=== PATIENT | male | born 2000 | race African-American/Black ===

== ENCOUNTER 2020-11-21 23:01 | Emergency (ER) | payer SELFPAY ==
[~2020-11-21] VITALS: Ht 170.2 cm; Wt 67.6 kg
--- NOTE | 2020-11-21 23:05 | PHYS DOC ---
General Adult HPI: HPI: ".. I was having sex.. with a condom this morning... Or actually yesterday morning... I pulled out and took the condom off... Then I decided to go back in.... Without a condom....." everything seemed to go okay but about noon it felt like I had a abnormal feeling in my penis..." Patient is a 20 year old male who presents with above hx and complaints tingling feeling in his penis head after unprotected sex. Patient denies any previous history of STDs. Sexual partner has no vaginal symptoms. Patient has had only one sexual partner in his life. Patient has not noticed any dysuria on urination. Has not noticed any discharge. They used no sexual stimulants or lubricants during the sexual intercourse. No other exposures to his penis, unusual soaps or new hygiene products, patient is a circumcised male with testicles descended. There is no obvious meatus discharge. There is no obvious lesions to the penile head or penile shaft. There is no adenopathy in groin. Patient states the tingle feeling is 1 out of 10. Patient denies any history of travel. Patient denies any specific ill contacts. Patient denies any history immunosuppression. Patient denies any other health problems. Patient has had Covid vaccination Moderna- x2 Months ago. Has been exposed to family members who had COVID, uncle stepdaughter has from COVID. Review of Systems: Review of Systems: Constitutional: Denies fever or chills Eyes: Denies change in visual acuity HENT: Denies nasal congestion or sore throat Respiratory: Denies cough or shortness of breath Cardiovascular: Denies chest pain or edema GI: Denies abdominal pain, nausea, vomiting, bloody stools or diarrhea : Denies dysuria. Complains of " funny tingle in penis head" Musculoskeletal: Denies back pain or joint pain Integument: Denies rash Neurologic: Denies headache, focal weakness or sensory changes Endocrine: Denies polyuria or polydipsia Lymphatic: Denies swollen glands Psychiatric: Denies depression or anxiety Family History: Family History: Noncontributory to presentation Current Medications: Current Meds: See nursing for home meds Allergies: Allergies: No known drug allergies . Does have a peanut allergy. Physical Exam: PE: Constitutional: Well developed, well nourished, no acute distress, non-toxic appearance. [] HENT: Normocephalic, atraumatic, bilateral external ears normal, oropharynx moist, no oral exudates, nose normal. [] Eyes: PERRLA, EOMI, conjunctiva normal, no discharge. [] Neck: Normal range of motion, no tenderness, supple, no stridor. [] Cardiovascular:Heart rate regular rhythm, no murmur [] Lungs & Thorax: Bilateral breath sounds clear to auscultation [] Abdomen: Bowel sounds normal, soft, no tenderness, no masses, no pulsatile masses. Circumcised male. No penile discharge. Testicles descended. No groin adenopathy. No obvious lesion of penile head. Skin: Warm, dry, no erythema, no rash. [] Back: No tenderness, no CVA tenderness. [] Extremities: No tenderness, no cyanosis, no clubbing, ROM intact, no edema. [] Neurologic: Alert and oriented X 3, normal motor function, normal sensory function, no focal deficits noted. [] Psychologic: Affect anxious, judgement normal, mood normal. [] EKG: EKG: [] Radiology/Procedures: Radiology/Procedures: [] Heart Score: C/O Chest Pain: N/A Risk Factors: Risk Factors: DM, Current or recent (<one month) smoker, HTN, HLP, family history of CAD, obesity. Risk Scores: Score 0 - 3: 2.5% MACE over next 6 weeks - Discharge Home Score 4 - 6: 20.3% MACE over next 6 weeks - Admit for Clinical Observation Score 7 - 10: 72.7% MACE over next 6 weeks - Early Invasive Strategies Course & Med Decision Making: Course & Med Decision Making Pertinent Labs and Imaging studies reviewed. (See chart for details) Patient follow-up urine cultures. Patient monitor any signs of herpes or penile discharge. Consider follow-up at the health department. Recommend patient practice safe sex that means a condom with all sexual intercourse. Patient return if any concerns. Patient follow-up primary care. Impression: 1. Change in penile sensation 2. Patient concern for possible STD [] Dragon Disclaimer: Dragon Disclaimer: This electronic medical record was generated, in whole or in part, using a voice recognition dictation system. Departure Departure: Referrals: PCPJAMESON (PCP) Dragon Disclaimer This chart was dictated in whole or in part using Voice Recognition software in a busy, high-work load, and often noisy Emergency Department environment. It may contain unintended and wholly unrecognized errors or omissions. Dragon Disclaimer This chart was dictated in whole or in part using Voice Recognition software in a busy, high-work load, and often noisy Emergency Department environment. It may contain unintended and wholly unrecognized errors or omissions. ANGELA OROURKE MD Nov 21, 2020 23:04
[2020-11-22 00:02] LABS: BACTERIA,URINE 0 /HPF (0-FEW); BILIRUBIN,URINE NEG (NEG); CLARITY,URINE CLEAR; COLOR,URINE YELLOW; GLUCOSE,URINE NEG (NEG); NITRITE,URINE NEG (NEG); RBC,URINE 0 /HPF (0-2); SQUAMOUS EPITHELIAL CELL,UR OCC /LPF; UROBILINOGEN,URINE 0.2 mg/dL (0.2 mg/dL); WBC,URINE OCC /HPF (0-4)
[2020-11-22 00:07] LABS: BARBITURATES NEG (NEG); BENZODIAZEPINES NEG (NEG); CANNABINOIDS NEG (NEG); COCAINE NEG (NEG); METHADONE NEG (NEG); OPIATES NEG (NEG); PHENCYCLIDINE NEG (NEG)
[2020-11-22 00:09] LABS: AMPHETAMINE/METHAMPHETAMINE NEG (NEG)
[2020-11-22 01:17] VITALS: BP 136/64
== END 2020-11-22 01:19 | disposition home or self-care (01) ==
LOC: ER 23:01
DX: N48.89 Other specified disorders of penis (principal)
CPT/HCPCS: 36415; 80307; 81001; 87491; 87591; 99283

== ENCOUNTER 2020-11-30 00:18 | Emergency (ER) | payer MEDICAID ==
[~2020-11-30] VITALS: Ht 177.8 cm; Wt 84.9 kg
--- NOTE | 2020-11-30 00:58 | RAD ---
Left ankle x-rays 3 views HISTORY: Left ankle pain and injury. FINDINGS: No fracture. No dislocation. No talus osteochondral lesion. The soft tissues are unremarkab le. IMPRESSION: No acute osseous injury. Electronically signed by: Gallo Rosado MD (11/30/2020 12:56 AM) [facility]
[2020-11-30 01:00] VITALS: BP 98/68
--- NOTE | 2020-11-30 01:22 | PHYS DOC ---
Past History Past Surgical History: No Surgical History Alcohol Use: None Adult General Chief Complaint Chief Complaint: ANKLE PROBLEM HPI HPI Patient is a 20 year old male who presents with left ankle pain after having suffered an injury 2 weeks ago while kickboxing. Since that time he has had pain on and off particularly onto the medial aspect. He is able to fully bear weight with discomfort that is random. He denies any pain to the foot, feldman, knee or hip. He has no other injuries or complaints. Review of Systems Review of Systems Constitutional: Denies fever or chills [] Eyes: Denies change in visual acuity, redness, or eye pain [] HENT: Denies nasal congestion or sore throat [] Respiratory: Denies cough or shortness of breath [] Cardiovascular: No additional information not addressed in HPI [] GI: Denies abdominal pain, nausea, vomiting, bloody stools or diarrhea [] Musculoskeletal: Denies back pain or joint pain [] Integument: Denies rash or skin lesions [] Neurologic: Denies headache, focal weakness or sensory changes [] All other systems were reviewed and found to be within normal limits, except as documented in this note. Family History Family History Unremarkable Current Medications Current Medications None Allergies Allergies Allergies Coded Allergies Type Severity Reaction Last Updated Verified peanut Allergy Unknown 11/21/20 Yes Physical Exam Physical Exam Constitutional:No acute distress, non-toxic appearance. [] HENT: Normocephalic, atraumatic, Eyes: PERRLA, EOMI, conjunctiva normal, no discharge. [] Neck: Normal range of motion, no tenderness, supple, no stridor. [] Cardiovascular:Heart rate regular rhythm, no murmur [] Lungs & Thorax: Bilateral breath sounds clear to auscultation [] Abdomen: Bowel sounds normal, soft, no tenderness, no masses, no pulsatile masses. [] Skin: Warm, dry, no erythema, no rash. [] Back: No tenderness, no CVA tenderness. [] Extremities: Left ankle has no significant swelling but very mild tenderness on deep palpation to the medial malleolus area. There is no tenderness laterally. Dorsalis pedis pulses normal. The movement of ankle is fairly normal with slight discomfort medially upon full extension. Rest of the extremity examination is normal. Neurologic: Alert and oriented X 3, normal motor function, normal sensory function, no focal deficits noted. [] Psychologic: Affect normal, judgement normal, mood normal. [] Current Patient Data Vital Signs Vital Signs Date Time Temp Pulse Resp B/P (MAP) Pulse Ox O2 Delivery O2 Flow Rate FiO2 11/30/20 01:00 98.4 54 20 98/68 99 Room Air EKG EKG [] Radiology/Procedures Radiology/Procedures Ankle x-ray as interpreted by radiology shows no evidence of acute injury. Impressions: No acute abnormalities Heart Score C/O Chest Pain: No Risk Factors: Risk Factors: DM, Current or recent (<one month) smoker, HTN, HLP, family history of CAD, obesity. Risk Scores: Risk Factors: DM, Current or recent (<one month) smoker, HTN, HLP, family hi story of CAD, obesity. Course & Med Decision Making Course & Med Decision Making Patient presented with isolated left ankle injury with continued tenderness after 2 weeks. Radiological study showed no acute bony injury. I have advised him to rest on it and if beyond 1 to 2-week he still has pain, he should see orthopedic surgeon for potential ligamentous injury. He does not require any splint as he is able to ambulate. He will use [id number] Motrin as needed for pain management. Dragon Disclaimer Dragon Disclaimer This electronic medical record was generated, in whole or in part, using a voice recognition dictation system. Departure Departure: Impression: Primary Impression: Ankle sprain Disposition: HOME / SELF CARE / HOMELESS Condition: STABLE Referrals: PCP,NO (PCP) If you are not completely better in 2 to 4 weeks, he should see orthopedic surgeon for further follow-up. Patient Instructions: Ankle Sprain HARIS LOPEZ MD Nov 30, 2020 01:22
== END 2020-11-30 01:56 | disposition home or self-care (01) ==
LOC: ER 00:18
DX: S93.402A Sprain of unspecified ligament of left ankle, initial encounter (principal); Z91.010 Allergy to peanuts; X50.9XXA Other and unspecified overexertion or strenuous movements or postures, initial encounter; Y93.89 Activity, other specified; Y92.89 Other specified places as the place of occurrence of the external cause; Y99.8 Other external cause status
CPT/HCPCS: 73610; 99283

== ENCOUNTER 2021-04-10 16:44 | Emergency (ER) | payer MEDICAID ==
[~2021-04-10] VITALS: Ht 170.2 cm; Wt 66.8 kg
[2021-04-10] MEDS ORDERED: IBUPROFEN 600 MG TABLET. PO ONE (17:15)
--- NOTE | 2021-04-10 17:20 | PHYS DOC ---
Past History Past Surgical History: No Surgical History (MIESHA PERKINS APRN) Alcohol Use: None (MIESHA PERKINS APRN) Adult General HPI HPI Patient is a 21-year-old male who presents to the emergency department complaining of right elbow pain, patient reports prior to arrival to the ER today he was wrestling another male and they landed on his right elbow. Patient denies feeling it pop, however does report pain with movement of the elbow. Patient denies taking pain medications or tried nonpharmacological pain relief therapies prior to arrival to the ER. Patient denies a surgical history, states he takes no medications at home, denies other physical complaints or physical concerns. (MIESHA PERKINS APRN) Review of Systems Review of Systems 14 body systems of review of systems have been reviewed. See HPI for pertinent positives and negative responses, otherwise all other systems are negative, nonpertinent or noncontributory. Constitutional: Negative except as outlined in HPI above. Skin: Negative except as outlined in HPI above. Eyes: Negative except as outlined in HPI above. HENT: Negative except as outlined in HPI above. Respiratory: Negative except as outlined in HPI above. Cardiovascular: Negative except as outlined in HPI above. GI: Negative except as outlined in HPI above. : Negative except as outlined in HPI above. Musculoskeletal: Negative except as outlined in HPI above. Integument: Negative except as outlined in HPI above. Neurologic: Negative except as outlined in HPI above. Endocrine: Negative except as outlined in HPI above. Lymphatic: Negative except as outlined in HPI above. Psychiatric: Negative except as outlined in HPI above. (MIESHA PERKINS APRN) Allergies Allergies Allergies Coded Allergies Type Severity Reaction Last Updated Verified peanut Allergy Unknown 11/21/20 Yes (MIESHA PERKINS APRN) Physical Exam Physical Exam Constitutional: Well developed, well nourished, no acute distress, non-toxic appearance. 21-year-old male in no apparent distress. HENT: Normocephalic, atraumatic. Eyes: Conjunctiva normal, no discharge. Neck: Normal range of motion, no stridor. Cardiovascular: No cyanosis appreciated, distal cap refill less than 2 seconds. Lungs & Thorax: Patient is in no respiratory distress, no audible adventitious lung sounds appreciated. Abdomen: Nontender, no abnormalities noted. Skin: Warm, dry, no erythema, no rash. Back: No tenderness, no deformities. Extremities: No tenderness, no cyanosis, no clubbing, ROM intact, no edema. Except for right upper extremity, full passive range of motion of the elbow join t to include flexion, extension, supination pronation, pain elicited with range of motion exam, no crepitus, no deformities appreciated, no swelling, no contusion appreciated, distal cap refill less than 2 seconds, 2+ radial pulses equal bilateral upper extremities. Neurologic: Alert and oriented X 3, normal motor function, normal sensory function, no focal deficits noted. Psychologic: Affect normal, judgement normal, mood normal. (MIESHA PERKINS APRN) EKG EKG [] (MIESHA PERKINS APRN) Radiology/Procedures Radiology/Procedures SEX: M EXAM STATUS: REG ER ORD. PHYSICIAN: MIESHA PERKINS APRN REASON: PAIN ESPECIALLY AROUND BACK OF ELBOW AFTER INJURY TODAY PROCEDURE: ELBOW RIGHT 3V XR ELBOW COMPLETE_RIGHT 3+ VIEWS History: Pain around back of elbow after injury. Comparison: None. Technique: 3 views of the right elbow. Findings: Osseous mineralization is normal. No acute fracture or dislocaton. No effusion. No significant degenerative changes. Soft tissues are unremarkable. Impression: 1. Unremarkable right elbow. Electronically signed by: Benigno Hansen MD (04/10/2021 5:27 PM) [facility] DICTATED AND SIGNED BY: BENIGNO HANSEN MD DATE: 04/10/211725 CC: MIESHA PERKINS APRN; PCP,NO ~MTH0 0 (MIESHA PERKINS APRN) Heart Score C/O Chest Pain: No Risk Factors: Risk Factors: DM, Current or recent (<one month) smoker, HTN, HLP, family history of CAD, obesity. Risk Scores: Risk Factors: DM, Current or recent (<one month) smoker, HTN, HLP, family history of CAD, obesity. (MIESHA PERKINS APRN) Course & Med Decision Making Course & Med Decision Making Pertinent Labs and Imaging studies reviewed. (See chart for details) 21-year-old male, vital signs reviewed, presents emerged from concerning right elbow pain after wrestling with somebody. Physical examination concerning for osseous elbow injury versus soft tissue injury of the right elbow. Will order x-ray, ice pack, ibuprofen for pain. X-ray imaging unremarkable, discussed findings with patient, will place Jesús wrap and sling for comfort, discussed RICE therapy, follow-up with primary care soon, return ER precautions or concerns. Patient gave verbal understanding of and is amenable to ED discharge planning. Discussed with the patient all findings and diagnostic testing as well as the need to follow-up with their primary care provider for further evaluation and treatment or return to the ED if any new or worsening symptoms. Strict return precautions were also discussed at length, the patient voiced understanding and agreement with the discharge planning. The patient was nontoxic in appearance, in no apparent distress, and hemodynamically stable at the time of disposition. (MISEHA PERKINS APRN) Course & Med Decision Making I was the Attending physician on the above date of service of this patient. This patient was evaluated, examined, treated, and dispositioned from the emergency department by the mid-level practitioner. Although I was working at the time , no assistance was requested. Electronically signed, Louie Feliz DO (LOUIE FELIZ DO) Dragon Disclaimer Dragon Disclaimer This electronic medical record was generated, in whole or in part, using a voice recognition dictation system. (MIESHA PERKINS APRN) Departure Departure: Impression: Primary Impression: Strain of right elbow Disposition: 01 HOME / SELF CARE / HOMELESS Condition: GOOD Referrals: PCP,NO (PCP) Patient Instructions: Elastic Bandage and RICE, Elbow Injury Additional Instructions: You were seen today in the emergency department after straining your right elbow while wrestling today. An x-ray was performed did not show any injury of the bones. I suspect that this is a strain of the elbow joint, you were treated with ice packs, ibuprofen for pain. After the x-ray was read negative a Jesús wrap was applied for comfort, and sling to aid in discomfort. Please practice RICE therapy this is an acronym for rest, ice, compression, elevation. Ice packs 30 minutes on and 30 minutes off while awake for the next 48 to 72 hours. I will prescribe 600 mg ibuprofen for inflammation of the elbow joint. Please follow-up with your primary care physician for ongoing aches and pains as this may require an MRI if pain is not resolved within a week or so. You may c onsider using the [facility] for outpatient care located at [address] [place] [address]. [address] [place] [address], their telephone number is area code [phone]. Please return to the emergency department for worsening symptoms or other concerns. Thank you for visiting our Emergency Department. It was a pleasure taking care of you today in the emergency department and we appreciate you trusting us with your care. If any additional problems come up don't hesitate to return to visit us. Please follow up with your primary care provider so they can plan additional care if needed and know about the problem that you had. If symptoms worsen come back to the Emergency Department. Any concerning symptoms that start such as chest pain, shortness of air, weakness or numbness on one side of the body, running high fevers or any other concerning symptoms return to the ER. EMERGENCY DEPARTMENT GENERAL DISCHARGE INSTRUCTIONS Thank you for coming to [facility] (ED) today and trusting us with you care. We trust that you had a positivie experience in our Emergency Department. If you wish to speak to the department management, you may call the director at [phone]. YOUR FOLLOW UP INSTRUCTIONS ARE FOLLOWS: 1. Do you have a private Doctor? If you do not have a private doctor, please ask for a resource list of physicians or clinics that may be able to assist you with follow up care. 2. The Emergency Physician has interpreted your x-rays. The X-Ray specialist will also review them. If there is a change in the findings, you will be notified in 48 hours when at all possible. 3. A lab test or culture has been done, your results will be reviewed and you will be notified if you need a change in treatment. ADDITIONAL INSTRUCTIONS AND INFORMATION: 1. Your care today has been supervised by a physician who is specially trained in emergency care. Many problems require more than one evaluation for a complete diagnosis and treatment. We recommend that you schedule your follow up appointment as recommended to ensure complete treatment of you illness or injury. If you are unable to obtain follow up care and continue to have a problem, or if your condition worsens, we recommend that you return to the ED. 2. We are not able to safely determine your condition over the phone nor are we able to give sound medical advice over the phone. For these safety reasons, if you call for medical advice we will ask you to come to the ED for further evaluation. 3. If you have any questions regarding these discharge instructions please call the ED at [phone]. SAFETY INFORMATION: In the interest of safety, wellness, and injury prevention; we encourage you to wear your sealbelt, if you smoke; quite smoking, and we encourage family to use a protective helmet for bicycling and other sporting events that present an increased risk for head injury. IF YOUR SYMPTOMS WORSEN OR NEW SYMPTOMS DEVELOP, OR YOU HAVE CONCERNS ABOUT YOUR CONDITION; OR IF YOUR CONDITION WORSENS WHILE YOU ARE WAITING FOR YOUR FOLLOW UP APPOINTMENT; EITHER CONTACT YOUR PRIMARY CARE DOCTOR, THE PHYSICIAN WHOSE NAME AND NUMBER YOU WERE GIVEN, OR RETURN TO THE ED IMMEDIATELY. Scripts Ibuprofen (IBUPROFEN) 600 Mg Tablet 600 MG PO PRN Q4-6HRS PRN for PAIN, #30 TAB 0 Refills Prov: MIESHA PERKINS APRN 04/10/21 Problem Qualifiers Primary Impression: Strain of right elbow Encounter type: initial encounter Qualified Codes: S46.911A - Strain of unspecified muscle, fascia and tendon at shoulder and upper arm level, right arm, initial encounter MIESHA PERKINS APRN Apr 10, 2021 17:20 LOUIE FELIZ DO Apr 13, 2021 07:03
--- NOTE | 2021-04-10 17:30 | RAD ---
XR ELBOW COMPLETE_RIGHT 3+ VIEWS History: Pain around back of elbow after injury. Comparison: None. Technique: 3 views of the right elbow. Findings: Osseous mineralization is normal. No acute fracture or dislocaton. No effusion. No significant degene rative changes. Soft tissues are unremarkable. Impression: 1. Unremarkable right elbow. Electronically signed by: Benigno Mcclendon MD (04/10/2021 5:27 PM) [facility]
[2021-04-10 17:45] VITALS: BP 115/48
[2021-04-10] MEDS ORDERED: IBUP600T16 PO (17:52)
== END 2021-04-10 18:13 | disposition home or self-care (01) ==
LOC: ER 16:44
DX: S46.911A Strain of unspecified muscle, fascia and tendon at shoulder and upper arm level, right arm, initial encounter (principal); Z91.010 Allergy to peanuts; W18.39XA Other fall on same level, initial encounter; Y93.72 Activity, wrestling; Y92.89 Other specified places as the place of occurrence of the external cause; Y99.8 Other external cause status
CPT/HCPCS: 73080; 99283

== ENCOUNTER 2021-06-08 19:35 | Emergency (ER) | payer MEDICAID ==
[~2021-06-08] VITALS: Ht 170.2 cm; Wt 65.0 kg
[~2021-06-08 19:35] MED LIST: IBUP600T16 PO
[2021-06-08] MEDS ORDERED: IBUPROFEN 600 MG TABLET. PO ONE (20:15)
[2021-06-08] MEDS ORDERED: ACETAMINOPHEN 500 MG TABLET PO ONE (20:15)
--- NOTE | 2021-06-08 22:10 | PHYS DOC ---
Past History Past Medical History: No Pertinent History (JILLIAN ZHU APRN) Past Surgical History: No Surgical History (JILLIAN ZHU APRN) Alcohol Use: None (JILLIAN ZHU APRN) General Adult EDM: Chief Complaint: FEVER HPI: HPI: Patient is a 21-year-old male that presents today with a 2-day complaint of cough and fever. Patient states that over the last 2 days he has had headache, cough, and low-grade fever. Patient states he took Tylenol yesterday but has not taken anything today for his headache or fever. Patient states he does not smoke and has no past medical history. (JILLIAN ZHU APRN) Review of Systems: Review of Systems: Constitutional: Fever and chills Eyes: Denies change in visual acuity HENT: Denies nasal congestion or sore throat Respiratory: Cough Cardiovascular: Denies chest pain or edema GI: Denies abdominal pain, nausea, vomiting, bloody stools or diarrhea : Denies dysuria Musculoskeletal: Denies back pain or joint pain Integument: Denies rash Neurologic: Denies headache, focal weakness or sensory changes Endocrine: Denies polyuria or polydipsia Lymphatic: Denies swollen glands Psychiatric: Denies depression or anxiety (JILLIAN ZHU APRN) Current Medications: Current Meds: Current Medications Medications (Trade) Dose Ordered Sig/Rj Start Time Stop Time Status Last Admin Dose Admin Acetaminophen (Tylenol) 1,000 mg 1X ONCE 06/08/21 20:15 06/08/21 20:16 DC 06/08/21 20:08 1,000 MG Ibuprofen (Motrin) 600 mg 1X ONCE 06/08/21 20:15 06/08/21 20:16 DC 06/08/21 20:08 600 MG (JILLIAN ZHU APRN) Allergies: Allergies: Allergies Coded Allergies Type Severity Reaction Last Updated Verified peanut Allergy Unknown 11/21/20 Yes (JILLIAN ZHU APRN) Physical Exam: PE: Constitutional: Well developed, well nourished, no acute distress, non-toxic appearance. [] HENT: Normocephalic, atraumatic, bilateral external ears normal, oropharynx moist, no oral exudates, nose normal. [] Eyes: PERRLA, EOMI, conjunctiva normal, no discharge. [] Neck: Normal range of motion, no tenderness, supple, no stridor. [] Cardiovascular:Heart rate regular rhythm, no murmur [] Lungs & Thorax: Bilateral breath sounds clear to auscultation [] Abdomen: Bowel sounds normal, soft, no tenderness, no masses, no pulsatile masses. [] Skin: Warm, dry, no erythema, no rash. [] Back: No tenderness, no CVA tenderness. [] Extremities: No tenderness, no cyanosis, no clubbing, ROM intact, no edema. [] Neurologic: Alert and oriented X 3, normal motor function, normal sensory function, no focal deficits noted. [] Psychologic: Affect normal, judgement normal, mood normal. [] (JILLIAN ZHU APRN) Current Patient Data: Labs: Laboratory Tests Test 06/08/21 21:50 Influenza Type A (Rapid) Positive Influenza Type B (Rapid) Negative SARS-CoV-2 Antigen (Rapid) Negative Current Medications Medications (Trade) Dose Ordered Sig/Rj Route PRN Reason Start Time Stop Time Status Last Admin Dose Admin Ibuprofen (Motrin) 600 mg 1X ONCE PO 06/08/21 20:15 06/08/21 20:16 DC 06/08/21 20:08 Acetaminophen (Tylenol) 1,000 mg 1X ONCE PO 06/08/21 20:15 06/08/21 20:16 DC 06/08/21 20:08 Vital Signs: Vital Signs Date Time Temp Pulse Resp B/P (MAP) Pulse Ox O2 Delivery O2 Flow Rate FiO2 06/08/21 22:35 71 20 139/68 (91) 97 Room Air 06/08/21 19:58 100.6 98 18 122/81 (95) 98 Room Air Vital Signs Date Time Temp Pulse Resp B/P (MAP) Pulse Ox O2 Delivery O2 Flow Rate FiO2 06/08/21 19:58 100.6 98 18 122/81 (95) 98 Room Air (JILLIAN ZHU APRN) EKG: EKG: [] (JILLIAN ZHU APRN) Radiology/Procedures: Radiology/Procedures: Chest x-ray was reviewed by myself and Dr. Concepcion, no acute findings were seen. [] (JILLIAN ZHU APRN) Heart Score: C/O Chest Pain: N/A Risk Factors: Risk Factors: DM, Current or recent (<one month) smoker, HTN, HLP, family history of CAD, obesity. Risk Scores: Score 0 - 3: 2.5% MACE over next 6 weeks - Discharge Home Score 4 - 6: 20.3% MACE over next 6 weeks - Admit for Clinical Observation Score 7 - 10: 72.7% MACE over next 6 weeks - Early Invasive Strategies (JILLIAN ZHU APRN) Course & Med Decision Making: Course & Med Decision Making Pertinent Labs and Imaging studies reviewed. (See chart for details) Reassessment of patient shows sitting in the hallway with no increased work of breathing, influenza was positive patient was instructed to stay well-hydrated take Tylenol and/or ibuprofen as needed for pain and to follow-up with his primary care physician as needed. (JILLIAN ZHU APRN) Course & Med Decision Making Did not see or evaluate patient. 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 Generally agree with BOLTING MACHINE OPERATOR's work-up and disposition per note. (NAVID CONCEPCION MD) Dragon Disclaimer: Dragon Disclaimer: This electronic medical record was generated, in whole or in part, using a voice recognition dictation system. (JILLIAN ZHU APRN) Departure Departure: Impression: Primary Impression: Influenza A Disposition: HOME / SELF CARE / HOMELESS Condition: STABLE Referrals: PCP,NO (PCP) Patient Instructions: Influenza A (H1N1) Additional Instructions: Tylenol and/or ibuprofen as needed for pain Increase by mouth fluids stay well-hydrated Use [id number] nasal decongestants and cough suppressants as needed to treat symptoms Follow-up with your primary care physician as needed JILLIAN ZHU APRN Jun 08, 2021 22:10 NAVID CONCEPCION MD Jun 08, 2021 23:12
[2021-06-08 22:25] LABS: INFLUENZA B PATIENT NEGATIVE (NEGATIVE)
[2021-06-08 22:27] LABS: INFLUENZA A PATIENT POSITIVE (NEGATIVE)
[2021-06-08 22:35] VITALS: BP 139/68
--- NOTE | 2021-06-08 23:07 | RAD ---
EXAM: CHEST ONE VIEW. HISTORY: Cough. COMPARISON: None. FINDINGS: A frontal view of the chest is obtained. There are no confluent infiltrates. There is no pneumothorax or pleural effusion. The heart is not en larged. IMPRESSION: 1. No confluent infiltrates. Electronically signed by: Milly Bond MD (06/08/2021 11:05 PM) [id number]
== END 2021-06-08 22:35 | disposition home or self-care (01) ==
LOC: ER 19:35
DX: J10.1 Influenza due to other identified influenza virus with other respiratory manifestations (principal); Z20.822 Contact with and (suspected) exposure to COVID-19; Z91.010 Allergy to peanuts
CPT/HCPCS: 71045; 87428; 99284

== ENCOUNTER 2021-07-14 22:23 | Emergency (ER) | payer MEDICAID ==
[~2021-07-14] VITALS: Ht 170.2 cm; Wt 65.0 kg
[2021-07-14] MEDS ORDERED: ONDANSETRON ODT 4 MG TAB.RAPDIS ONE (22:33)
[2021-07-14] MEDS ORDERED: ONDANSETRON ODT 4 MG TAB.RAPDIS PO ONE (22:45)
[2021-07-14] MEDS ORDERED: ONDANSETRON PF 4 MG/2 ML VIAL. IVP ONE (23:30)
[2021-07-14] MEDS ORDERED: IV NORMAL SALINE 1,000ML 1,000 ML IV ONE (23:30)
--- NOTE | 2021-07-14 23:38 | PHYS DOC ---
Past History Past Medical History: No Pertinent History Past Surgical History: No Surgical History Alcohol Use: None General Adult EDM: Chief Complaint: NAUSEA/VOMITING/DIARRHEA HPI: HPI: 21-year-old male presents with 4-day history of vomiting and diarrhea. Patient has vomiting couple times a day. He has had several episodes of diarrhea per day. He states it is very watery. He has some generalized abdominal pain. He is having trouble keeping down liquids or solids so he came in for evaluation. He denies fever chills. Unknown sick contacts. Review of Systems: Review of Systems: Constitutional: Denies fever or chills Eyes: Denies change in visual acuity HENT: Denies nasal congestion or sore throat Respiratory: Denies cough or shortness of breath Cardiovascular: Denies chest pain or edema GI: Generalized abdominal pain, nausea, vomiting, diarrhea : Denies dysuria Musculoskeletal: Denies back pain or joint pain Integument: Denies rash Neurologic: Denies headache, focal weakness or sensory changes Endocrine: Denies polyuria or polydipsia Lymphatic: Denies swollen glands Psychiatric: Denies depression or anxiety Current Medications: Current Meds: Current Medications Medications (Trade) Dose Ordered Sig/Rj Start Time Stop Time Status Last Admin Dose Admin Loperamide HCl (Imodium) 4 mg 1X ONCE 07/14/21 23:45 07/14/21 23:46 UNV Ondansetron HCl (Zofran Odt) 4 mg STK-MED ONCE 07/14/21 22:33 07/14/21 22:33 DC Ondansetron HCl (Zofran) 4 mg 1X ONCE 07/14/21 23:30 07/14/21 23:31 DC Sodium Chloride 1,000 ml @ 1,000 mls/hr 1X ONCE 07/14/21 23:30 07/15/21 00:29 Allergies: Allergies: Allergies Coded Allergies Type Severity Reaction Last Updated Verified peanut Allergy Unknown 11/21/20 Yes Physical Exam: PE: Constitutional: Well developed, well nourished, no acute distress, non-toxic appearance. [] HENT: Normocephalic, atraumatic, bilateral external ears normal, oropharynx moist, no oral exudates, nose normal. [] Eyes: PERRLA, EOMI, conjunctiva normal, no discharge. [] Neck: Normal range of motion, no tenderness, supple, no stridor. [] Cardiovascular: Heart rate regular rhythm, no murmur [] Lungs & Thorax: Bilateral breath sounds clear to auscultation [] Abdomen: Bowel sounds normal, soft, no tenderness, no masses, no pulsatile masses. [] Skin: Warm, dry, no erythema, no rash. [] Back: No tenderness, no CVA tenderness. [] Extremities: No tenderness, no cyanosis, no clubbing, ROM intact, no edema. [] Neurologic: Alert and oriented X 3, normal motor function, normal sensory fu nction, no focal deficits noted. [] Psychologic: Affect normal, judgement normal, mood normal. [] Current Patient Data: Vital Signs: Vital Signs Date Time Temp Pulse Resp B/P (MAP) Pulse Ox O2 Delivery O2 Flow Rate FiO2 07/14/21 23:06 61 16 138/56 (83) 99 Room Air 07/14/21 22:30 98.2 EKG: EKG: [] Radiology/Procedures: Radiology/Procedures: [] Heart Score: C/O Chest Pain: N/A Risk Factors: Risk Factors: DM, Current or recent (<one month) smoker, HTN, HLP, family history of CAD, obesity. Risk Scores: Score 0 - 3: 2.5% MACE over next 6 weeks - Discharge Home Score 4 - 6: 20.3% MACE over next 6 weeks - Admit for Clinical Observation Score 7 - 10: 72.7% MACE over next 6 weeks - Early Invasive Strategies Course & Med Decision Making: Course & Med Decision Making Pertinent Labs and Imaging studies reviewed. (See chart for details) The patient's labs are unremarkable, except for slightly low potassium of 3.3. This is likely due to his output. He has been given Zofran, loperamide and a liter of normal saline. CT of the abdomen pelvis is negative for acute findings. I will discharge the patient with Zofran and recommended loperamide as needed for diarrhea. This is likely viral gastroenteritis. He is stable for discharge at this time. [] Dragon Disclaimer: Dragon Disclaimer: This electronic medical record was generated, in whole or in part, using a voice recognition dictation system. Departure Departure: Impression: Primary Impression: Viral gastroenteritis Disposition: HOME / SELF CARE / HOMELESS Condition: STABLE Referrals: PCP,NO (PCP) Patient Instructions: Viral Gastroenteritis, [id number] Scripts Ondansetron (ONDANSETRON ODT) 4 Mg Tab.rapdis 1 TAB PO PRN Q6-8HRS PRN for VOMITING, #16 TAB Prov: BRIT ADAME DO 07/15/21 BRIT ADAME DO Jul 14, 2021 23:38
[2021-07-14] MEDS ORDERED: LOPERAMIDE 2 MG CAPSULE PO ONE (23:45)
[2021-07-14] MEDS ORDERED: CONTRAST GIVEN. MC PRN (23:45)
[2021-07-14] MEDS ORDERED: IOHEXOL 300 MG/ML 75 ML VIAL. IV ONE (23:45)
[2021-07-15 00:07] LABS: BASO % 1 % (0-3); EOS # 0.2 x10^3/uL (0.0-0.7); EOS % 6 % (0-3); HEMOGLOBIN 13.8 g/dL (13.0-17.5); LYMPH # 1.5 x10^3/uL (1.0-4.8); LYMPH % 41 % (24-48); MEAN CORPUSCULAR HEMOGLOBIN 29 pg (25-35); MEAN CORPUSCULAR HGB CONC 33 g/dL (31-37); MEAN CORPUSCULAR VOLUME 90 fL (79-100); MONO # 0.4 x10^3/uL (0.0-1.1); MONO % 9 % (0-9); NEUT # 1.7 x10^3uL (1.8-7.7); NEUT % 43 % (31-73); PLATELET COUNT 201 x10^3/uL (140-400); RED BLOOD COUNT 4.69 x10^6/uL (4.30-5.70); RED CELL DISTRIBUTION WIDTH 12.4 % (11.5-14.5); WHITE BLOOD COUNT 3.8 x10^3/uL (4.0-11.0)
[2021-07-15 00:14] LABS: CALCIUM 8.8 mg/dL (8.5-10.1); CREATININE 0.9 mg/dL (0.7-1.3); GFR 128.9; POTASSIUM 3.3 mmol/L (3.5-5.1)
[2021-07-15 00:20] LABS: ALBUMIN 3.9 g/dL (3.4-5.0); ALBUMIN/GLOBULIN RATIO 1.2 (1.0-1.7); TOTAL BILIRUBIN 0.5 mg/dL (0.2-1.0); TOTAL PROTEIN 7.2 g/dL (6.4-8.2)
[2021-07-15 00:25] VITALS: BP 137/78
--- NOTE | 2021-07-15 00:44 | RAD ---
EXAMINATION: CT ABDOMEN+PELVIS W CLINICAL HISTORY: Periumbilical pain, diarrhea. TECHNIQUE: CT of the abdomen and pelvis was performed using standard technique, scanning from just ab ove the dome of the diaphragm to the symphysis pubis following administration of intravenous contrast . CT Dose Reduction Employed: One or more of the following individualized dose reduction techniques wer e utilized for this examination: 1. Automated exposure control 2. Adjustment of the mA and/or kV ac cording to patient size 3. Use of iterative reconstruction technique. COMPARISON: None FINDINGS: Visualized heart and lungs unremarkable. Liver, gallbladder, pancreas, spleen, adrenal glands, and kidneys unremarkable. Minimally filled urinary bladder. Mild free fluid in the rectovesical fossa, likely reactive. Diffusely fluid-filled small bowel with prominent aj, nonspecific but may be related to mild enter itis. No dilated bowel. Appendix not definitively visualized in this thin patient with visceral crowd ing. No abdominal aortic or iliac artery aneurysm. No evidence of acute osseous abnormality. IMPRESSION: Findings suspicious for mild enteritis. Appendix not definitively visualized on limited evaluation, cannot exclude appendicitis. Electronically signed by: Ismael Ramsay DO (07/15/2021 12:42 AM) [facility]
[2021-07-15] MEDS ORDERED: ONDA4TAB12 PO (00:48)
== END 2021-07-15 00:55 | disposition home or self-care (01) ==
LOC: ER 22:23
DX: A08.4 Viral intestinal infection, unspecified (principal); Z91.010 Allergy to peanuts
CPT/HCPCS: 36415; 74177; 80053; 85025; 96361; 96374; 99285; J2405; J7030; Q0162; Q9967

== ENCOUNTER 2021-08-28 23:22 | Emergency (ER) | payer MEDICAID ==
[~2021-08-28] VITALS: Ht 170.2 cm; Wt 67.8 kg
[~2021-08-28 23:22] MED LIST changes: +ONDA4TAB12 PO
--- NOTE | 2021-08-28 23:53 | PHYS DOC ---
Past History Past Medical History: No Pertinent History Past Surgical History: No Surgical History Alcohol Use: None General Adult EDM: Chief Complaint: GROIN PAIN HPI: HPI: ".. I ve been hurting down in my bag.. Lt testicle ..off and on 1 week or 2.. much worse tonight..." Patient is a 21 year old male who presents with Lt testicle and epididymis pain. Patient denies any dysuria. Has never had an STD. No history of immunosuppression or HIV. Has had only 1 lifetime sexual partner that has been unprotected. No history of trauma. No history of travel. No history of injury and lifting. Patient used to follow-up with Dr. Blake but no longer has a primary care. He is a circumcised male. With tenderness of left testicle and epididymis. Delay of the testicle appears to be normal. No penile discharge. No evidence of a direct inguinal hernia. No adenopathy. Review of Systems: Review of Systems: Constitutional: Denies fever or chills Eyes: Denies change in visual acuity HENT: Denies nasal congestion or sore throat Respiratory: Denies cough or shortness of breath Cardiovascular: Denies chest pain or edema GI: Denies abdominal pain, nausea, vomiting, bloody stools or diarrhea : Denies dysuria. Complains of left testicular pain Musculoskeletal: Denies back pain or joint pain Integument: Denies rash Neurologic: Denies headache, focal weakness or sensory changes Endocrine: Denies polyuria or polydipsia Lymphatic: Denies swollen glands Psychiatric: Denies depression or anxiety Family History: Family History: Noncontributory to presentation Current Medications: Current Meds: See nursing for home meds Allergies: Allergies: Allergies Coded Allergies Type Severity Reaction Last Updated Verified peanut Allergy Unknown 11/21/20 Yes Physical Exam: PE: Constitutional: Well developed, well nourished, no acute distress, non-toxic appearance. [] HENT: Normocephalic, atraumatic, bilateral external ears normal, oropharynx moist, no oral exudates, nose normal. [] Eyes: PERRLA, EOMI, conjunctiva normal, no discharge. [] Neck: Normal range of motion, no tenderness, supple, no stridor. [] Cardiovascular:Heart rate regular rhythm, no murmur [] Lungs & Thorax: Bilateral breath sounds clear to auscultation [] Abdomen: Bowel sounds normal, soft, no tenderness, no masses, no pulsatile masses. [] Left epididymis and testicular pain. Testicle appears to have normal positioning. No findings of inguinal hernia. Circumcised male. No penile discharge. No adenopathy Skin: Warm, dry, no erythema, no rash. [] Back: No tenderness, no CVA tenderness. [] Extremities: No tenderness, no cyanosis, no clubbing, ROM intact, no edema. [] Neurologic: Alert and oriented X 3, normal motor function, normal sensory function, no focal deficits noted. [] Psychologic: Affect anxious, judgement normal, mood normal. [] EKG: EKG: [] Radiology/Procedures: Radiology/Procedures: [][place] [id number] IMAGING REPORT Signed PATIENT: ANGELA GALEANO ACCOUNT: [id number] : 2000 LOCATION: ER AGE: 21 SEX: M EXAM STATUS: REG ER ORD. PHYSICIAN: ANGELA OROURKE MD REASON: pain Lt tesicle PROCEDURE: TESTICULAR/SCROTUM US TESTICULAR: 08/28/2021 1:00 AM INDICATION: 21 years old Male. Pain in the left testicle. COMPARISON: None. FINDINGS: Right: Testicle: Normal in echotexture without focal lesion. Size: 4.2 x 2.0 x 1.8 cm. Flow: Normal color Doppler flow pattern. Epididymis: Normal in size and echotexture without focal lesion. Hydrocele: No significant Varicocele: None. Left: Testicle: Normal in echotexture without focal lesion. Size: 4.4 x 2.0 x 2.5 cm. Flow: Normal color Doppler flow pattern. Epididymis: Normal in size and echotexture without focal lesion. Hydrocele: No significant Varicocele: None. IMPRESSION: Symmetric perfusion of the testicles without significant abnormality. Electronically signed by: Julianna Downs MD (08/29/2021 1:24 AM) [facility] DICTATED AND SIGNED BY: JULIANNA DOWNS MD DATE: 08/29/21122 CC: ANGELA OROURKE MD; PCP,NO ~ Heart Score: C/O Chest Pain: N/A Risk Factors: Risk Factors: DM, Current or recent (<one month) smoker, HTN, HLP, family history of CAD, obesity. Risk Scores: Score 0 - 3: 2.5% MACE over next 6 weeks - Discharge Home Score 4 - 6: 20.3% MACE over next 6 weeks - Admit for Clinical Observation Score 7 - 10: 72.7% MACE over next 6 weeks - Early Invasive Strategies Course & Med Decision Making: Course & Med Decision Making Pertinent Labs and Imaging studies reviewed. (See chart for details) Patient consider wearing a jockstrap. Ice packs as needed. Tylenol and ibuprofen for pain. Take Cipro 500 mg twice a day for next 7 days. Consider follow-up with urology of choice. Consider follow-up with [id number] primary care. Have primary care review ED record.. Patient advised that even though he had a ultrasound that testicle torsion still can be missed. Patient push fluids. Patient return with any concerns. Impression: 1. Lt. testicle pain 2. Epididymitis / [] Dragon Disclaimer: Dragon Disclaimer: This electronic medical record was generated, in whole or in part, using a voice recognition dictation system. Departure Departure: Referrals: PCP,NO (PCP) Scripts Ciprofloxacin (CIPRO) 500 Mg/5 Ml Laura.mc.rec 500 MG PO BID for epididmyitis for 7 Days, [facility] Prov: ANGELA OROURKE MD 08/29/21 Bernabe Disclaimer This chart was dictated in whole or in part using Voice Recognition software in a busy, high-work load, and often noisy Emergency Department environment. It may contain unintended and wholly unrecognized errors or omissions. ANGELA OROURKE MD August 28, 2021 23:53
[2021-08-29] MEDS ORDERED: ONDANSETRON ODT 4 MG TAB.RAPDIS PO ONE
[2021-08-29] MEDS ORDERED: AZITHROMYCIN 250 MG TABLET. PO ONE
[2021-08-29] MEDS ORDERED: cefTRIAXone IM 1 GM VIAL IM ONE
[2021-08-29] MEDS ORDERED: metroNIDAZOLE 500 MG TABLET PO ONE
[2021-08-29 00:46] LABS: CLARITY,URINE CLEAR; COLOR,URINE YELLOW; GLUCOSE,URINE NEG (NEG)
[2021-08-29 00:47] LABS: AMORPHOUS SEDIMENT,UR PRESENT /HPF; BACTERIA,URINE FEW /HPF (0-FEW); NITRITE,URINE NEG (NEG); RBC,URINE RARE /HPF (0-2); WBC,URINE OCC /HPF (0-4)
[2021-08-29 01:03] VITALS: BP 130/50
--- NOTE | 2021-08-29 01:26 | RAD ---
US TESTICULAR: 08/28/2021 1:00 AM INDICATION: 21 years old Male. Pain in the left testicle. COMPARISON: None. FINDINGS: Right: Testicle: Normal in echotexture without focal lesion. Size: 4.2 x 2.0 x 1.8 cm. Flow: Normal color Doppler flow pattern. Epididymis: Normal in size and echotexture without focal lesion. Hydrocele: No significant Varicocele: None. Left: Testicle: Normal in echotexture without focal lesion. Size: 4.4 x 2.0 x 2.5 cm. Flow: Normal color Doppler flow pattern. Epididymis: Normal in size and echotexture without focal lesion. Hydrocele: No significant Varicocele: None. IMPRESSION: Symmetric perfusion of the testicles without significant abnormality. Electronically signed by: Jaylin Burr MD (08/29/2021 1:24 AM) [facility]
[2021-08-29] MEDS ORDERED: CIPR500S2 PO (01:47)
== END 2021-08-29 02:04 | disposition home or self-care (01) ==
LOC: ER 23:22
DX: N45.1 Epididymitis (principal); Z91.010 Allergy to peanuts
CPT/HCPCS: 36415; 76870; 81001; 87491; 87591; 96372; 99284; J0696; Q0162; 96374